=== PATIENT | male | born 1960 | race African-American/Black ===

== ENCOUNTER 2018-05-18 11:00 | Emergency (ER) | payer OTHER, MEDICAID ==
[~2018-05-18] VITALS: Ht 175.3 cm; Wt 75.0 kg
--- NOTE | 2018-05-18 11:16 | NUR ---
PT PLACED ON HEART MONITOR, BP CUFF, PULSE OX. SEIZURE PADS IN PLACE. CALL LIGHT WITHIN REACH, PT OFFERED WARM BLANKET. PT UNABLE TO REMEMBER NAME OF MEDICINE FOR SEIZURE DISORDER AND UNABLE TO RECALL NAMES OF OTHER MEDICATIONS HE TAKES. CALL TO "[facility] TECHNICIAN" [facility] AT [place] AND LEFT(PT PROVIDED PHONE NUMBER).
[2018-05-18 12:04] LABS: ALBUMIN 3.3 g/dL (3.4-5.0); ANION GAP 10 mmol/L (5-15); CALCIUM 8.7 mg/dL (8.5-10.1); CHLORIDE 105 mmol/L (98-107); CREATININE 0.66 mg/dL (0.7-1.3)
[2018-05-18 12:05] LABS: MEAN CORPUSCULAR HEMOGLOBIN 33.7 pg (27.5-34.5); MEAN CORPUSCULAR HGB CONC 34.2 g/dL (33.2-36.2); MEAN CORPUSCULAR VOLUME 98.6 fL (81-97); PLATELET COUNT 279 x10^3/uL (130-400); RED BLOOD COUNT 3.47 x10^6/uL (4.38-5.82)
--- NOTE | 2018-05-18 12:19 | NUR ---
CALL TO [facility]-PT PRESCRIBED KEPPRA 500 MG TAB, 4 IN AM, 2 IN PM. ERP NOTIFIED.
[2018-05-18 12:27] LABS: MD YES
[2018-05-18] MEDS ORDERED: LEVETIRACETAM 1,000 MG in SODIUM CHLORIDE 0.9% 100 ML IV ONE (12:30)
[2018-05-18 12:32] LABS: EOS#(MANUAL) 0.08 x10^3/uL (0.0-0.4); EOS% (MANUAL) 1 % (1-7); LYMPH#(MANUAL) 1.48 x10^3/uL (1-3.4); LYMPHS% (MANUAL) 19 % (22-44); MONOS#(MANUAL) 1.87 x10^3/uL (0.3-2.7); MONOS% (MANUAL) 24 % (2-9); SEG#(MANUAL) 4.37 x10^3/uL (1.8-6.8); SEGS% (MANUAL) 56 % (42-75)
[2018-05-18 12:33] LABS: ANISOCYTOSIS 1+
[2018-05-18 12:35] LABS: <PLATELET ESTIMATE> ADEQUATE; <PLT MORPHOLOGY> NORMAL PLT MORPH
[2018-05-18 12:38] LABS: HYPOCHROMIA 1+
--- NOTE | 2018-05-18 12:46 | NUR ---
IV PLACED. KEPPRA INFUSING PER ERP ORDER.
--- NOTE | 2018-05-18 12:53 | NUR ---
CALL TO NUMBER PT PROVIDED TO GET RIDE HOME-VM LEFT.
[2018-05-18 13:30] VITALS: BP 149/80
--- NOTE | 2018-05-18 13:31 | NUR ---
PAUL COMPLETED. PT GIVEN D/C INSTRUCTS WITH SCRIPT FOR PAUL. PT AMBULATORY WITH [facility]ALKER TO BR. AWAITING [facility] HOME FROM [facility]. ETA 1400.
== END 2018-05-18 14:15 | disposition home or self-care (01) ==
LOC: ED 13:37
DX: G40.309 Generalized idiopathic epilepsy and epileptic syndromes, not intractable, without status epilepticus (principal)
CPT/HCPCS: 36415; 80048; 82040; 85025; 96365; 99283; J1953